=== PATIENT | female | born 1940 | race African-American/Black ===

== ENCOUNTER 2023-06-19 20:58 | Emergency (ER) | payer SELFPAY ==
[~2023-06-19] VITALS: Ht 162.6 cm; Wt 59.2 kg
[2023-06-19 21:47] VITALS: BP 165/70; PULSE 82; RESP 16; TEMP 98.9; O2SAT 100
[2023-06-19] MEDS ORDERED: APIX5TAB MT (22:50)
[2023-06-19] MEDS ORDERED: APIX5TAB PO (22:50)
== END 2023-06-19 22:59 | disposition home or self-care (01) ==
LOC: ER 20:58
DX: I82.402 Acute embolism and thrombosis of unspecified deep veins of left lower extremity (principal); I10 Essential (primary) hypertension
CPT/HCPCS: 99281; 99283